=== PATIENT | female | born 1980 | race African-American/Black ===

== ENCOUNTER 2018-02-24 17:36 | Observation (INO) | payer OTHER ==
[~2018-02-24] VITALS: Ht 165.1 cm; Wt 99.8 kg
[2018-02-24 20:06] LABS: ABSOLUTE BASOPHIL COUNT 0.1 /CUMM (0.0-0.2); ABSOLUTE EOSINOPHIL COUNT 0.2 /CUMM (0.0-0.7); ABSOLUTE MONOCYTE COUNT 0.6 /CUMM (0.10-0.60); BASOPHIL % 0.8 % (0.0-2.0); EOSINOPHIL % 2.4 % (0-5); GRANULOCYTE % 44.5 % (42.2-75.2); HEMATOCRIT 34.6 % (37-47); MEAN CORPUSCULAR HGB 29.6 PG (27.0-31.0); MEAN CORPUSCULAR HGB CONC 33.2 G/DL (33.0-37.0); MEAN CORPUSCULAR VOLUME 89.2 FL (81.0-99.0); MEAN PLATELET VOLUME 8.4 FL (7.4-10.4); PLATELET COUNT 310 /CUMM (130-400); RBC DISTRIBUTION WIDTH 14.1 % (11.5-14.5); RED BLOOD CELL CT 3.88 /CUMM (4.20-5.40); WHITE BLOOD CELL COUNT 6.7 /CUMM (4.8-10.8)
--- NOTE | 2018-02-24 20:30 | ED PSYCHIATRIC COMPLAINT ---
History of Present Illness General Chief Complaint: ETOH/Drug Related Complaint Stated Complaint: ETOH Source: patient, old records Exam Limitations: intoxication Vital Signs & Intake/Output Vital Signs & Intake/Output Vital Signs Date Time Temp Pulse Resp B/P B/P Pulse O2 O2 Flow FiO2 Mean Ox Delivery Rate 02/25 1537 98.1 86 18 134/83 98 02/25 1536 98.1 86 18 134/83 02/25 1445 97 Room Air 02/25 1349 98.4 92 18 136/85 02/25 1322 98.4 92 18 136/85 97 Room Air 02/25 1104 97.6 76 18 140/87 02/25 1004 97.6 78 18 140/87 96 Room Air 02/25 0838 98.4 85 18 160/84 02/25 0809 98.4 85 18 160/84 98 Nasal 2.0L Cannula 02/25 0635 98.6 97 19 139/89 100 Nasal 2.5L Cannula 02/25 0459 98.4 103 19 124/82 99 Nasal 2.5L Cannula 02/25 0138 98.8 102 17 137/77 99 Nasal 2.5L Cannula 02/24 2347 98.5 120 21 128/89 99 Nasal 2.5L Cannula 02/24 2210 112 20 124/78 95 Nasal 2.5L Cannula 02/24 2115 114 20 120/61 95 Room Air 02/24 2102 116 20 146/63 92 Room Air 02/24 2055 98.5 115 14 149/87 86 Room Air 02/24 1819 Room Air 02/24 1809 98.7 125 28 107/68 97 Room Air ED Intake and Output 02/25 0000 02/24 1200 Intake Total Output Total Balance Patient 220 lb Weight Weight Reported by Patient Measurement Method Allergies Coded Allergies: No Known Allergies (02/24/18) Triage Note: PT BIBA C/O ETOH. PT IS AT [facility] [place] AND THEY CALLED REQUESTING DETOX FOR PT. PT STATES THAT SHE DRANK 2 PINTS OF VODKA TODAY. Triage Nurses Notes Reviewed? yes Onset: Just prior to arrival Duration: minute(s):, constant, continues in ED Timing: single episode today Severity: severe Associated Symptoms: impaired concentration LMP (ages 10-50): unknown : No Patient currently breastfeeds: No HPI: Patient is [facility]. Upon arrival she is agitated requiring physical and chemical restraints for sedation provided prior to my arrival. (Jl Brannon MD) Reconcile Medications Gabapentin 300 MG CAPSULE 1 CAP PO TID MENTAL HEALTH (Reported) [place] Carbonate 300 MG CAPSULE 1 CAP PO DAILY MENTAL HEALTH (Reported) [place] Carbonate 600 MG CAPSULE 1 CAP PO QPM MENTAL HEALTH (Reported) Quetiapine Fumarate 200 MG TABLET 1 TAB PO DAILY MENTAL HEALTH (Reported) Quetiapine Fumarate 300 MG TABLET 1 TAB PO QPM MENTAL HEALTH (Reported) [facility] Past History Travel History Traveled to [facility] past 21 day No Medical History Any Pertinent Medical History? see below for history Psychiatric: depression Isolation History: Standard Surgical History Surgical History: non-contributory Psychosocial History What is your primary language French Tobacco Use: Never used Family History Hx Contributory? No (Jl Brannon MD) Review of Systems Review of Systems Constitutional: Reports: no symptoms. EENTM: Reports: no symptoms. Respiratory: Reports: no symptoms. Cardiovascular: Reports: no symptoms. GI: Reports: no symptoms. Genitourinary: Reports: no symptoms. Musculoskeletal: Reports: no symptoms. Skin: Reports: no symptoms. Neurological/Psychological: Reports: see HPI, anxiety, confusion, emotional problems. Hematologic/Endocrine: Reports: no symptoms. Immunologic/Allergic: Reports: no symptoms. All Other Systems: Reviewed and Negative (Jl Brannon MD) Physical Exam Physical Exam General Appearance: well developed/nourished, mild distress Head: atraumatic, normal appearance Eyes: Bilateral: normal appearance, PERRL, EOMI. Ears, Nose, Throat: normal pharynx, normal ENT inspection, hearing grossly normal Neck: normal inspection, supple, full range of motion, no midline tenderness Respiratory: normal breath sounds, chest non-tender, no respiratory distress, quiet respiration, lungs clear Cardiovascular: regular rate/rhythm, normal peripheral pulses, norml femoral pulses equa Gastrointestinal: normal bowel sounds, soft, non-tender, no organomegaly Extremities: normal range of motion, no ligament instability Neurological/Psychiatric: no motor/sensory deficits, awake, agitated, alert, depressed affect, oriented x 3 Appearance/Memory/Insight: disheveled, impaired insight Behavoir/Eye Contact/Speech: uncooperative, increased rate of speech, threatening eye contact Thoughts/Hallucinations: no apparent hallucination Skin: intact, normal color, warm/dry SAD PERSONS Done? patient not suicidal (Salud RASCON,Jl) Progress Differential Diagnosis: drug intoxication, drug overdose, drug withdrawal, electrolyte abnormality, hypoglycemia Plan of Care: Orders Procedure Date/time Status Nursing Misc 02/26 0900 Active Regular Diet 02/25 D Active Regular Diet 02/25 B Complete Admit to inpatient psych 02/25 1551 Active ED Holding Orders 02/25 1551 Active Discharge Patient 02/25 1551 Active Code Status 02/25 1551 Active Patient Data - inpatient psych 02/25 1527 Active Admit to inpatient psych 02/25 1527 Active ED CRISIS PSYCH CONSULT 02/25 0816 Active Continuous Observation Monitor 02/25 0700 Active CIWA 02/25 0700 Active Continuous Observation Monitor 02/25 0300 Active CASE MANAGEMENT CONSULT 02/25 0152 Active OXYGEN SETUP (GEN) 02/25 0145 Active Saline Lock 02/[address] in observation 02/25 0145 Active Patient Data 02/25 0145 Active Vital Signs 02/25 0145 Active Activity/Ambulation 02/25 0145 Active Code Status 02/25 0145 Complete Alternative Nursing Therapy 02/25 UNK Active Continuous Observation Monitor 02/24 2300 Active Straight Cath 02/24 2109 Active EKG 02/24 2101 Active Restraint- Discontinue 02/24 2050 Active Restraint- Behavioral (Order) 02/24 1934 Complete URINE DRUG SCREEN FOR ER ONLY 02/24 193 Complete HUMAN BETA HCG SCREEN 02/24 193 Complete ETHANOL 02/24 193 Complete COMPREHENSIVE METABOLIC PANEL 02/24 193 Complete CBC WITHOUT DIFFERENTIAL 02/24 193 Complete Intake & Output 02/24 1922 Active Restraint- Behavioral (Order) 02/24 1905 Active Continuous Observation Monitor 02/24 1900 Active Current Medications Sig/Chip Start time Last Medication Dose Stop Time Status Admin Bisacodyl 5 MG DAILY PRN 02/25 1545 AC (Dulcolax) Acetaminophen 650 MG Q4P PRN 02/25 1530 AC (Tylenol) Al Hydroxide/Mg 30 ML Q4-6 PRN PRN 02/25 1530 AC Hydroxide (Maalox Plus) Haloperidol 5 MG Q4 HRS NEEDED PRN 02/25 1530 AC (Haldol) Haloperidol 5 MG Q4 HRS NEEDED PRN 02/25 1530 AC (Haldol) Lorazepam 2 MG Q4P PRN 02/25 1530 AC (Ativan) Laboratory Tests 02/24/18 2125: Urine Opiates Screen < 100, Methadone Screen 54, Barbiturate Screen < 60, Ur Phencyclidine Scrn < 6.00, Amphetamines Screen 149, U Benzodiazepines Scrn < 85, Urine Cocaine Screen < 50, Urine Cannabis Screen < 5.00 02/24/18 1950: Anion Gap 13, Estimated GFR > 60, BUN/Creatinine Ratio 21.3, Glucose 100 H, Calcium 9.6, Total Bilirubin 0.4, AST 91 H, ALT 32, Alkaline Phosphatase 83, Total Protein 7.7, Albumin 4.1, Globulin 3.6, Albumin/Globulin Ratio 1.1, Total Beta HCG NEGATIVE, CBC w Diff NO MAN DIFF REQ, RBC 3.88 L, MCV 89.2, MCH 29.6, MCHC 33.2, RDW 14.1, MPV 8.4, Gran % 44.5, Lymphocytes % 44.0, Monocytes % 8.3, Eosinophils % 2.4, Basophils % 0.8, Absolute Granulocytes 3.0, Absolute Lymphocytes 3.0, Absolute Monocytes 0.6, Absolute Eosinophils 0.2, Absolute Basophils 0.1, Serum Alcohol 233.0 Hand-Off Endorsed To: Telma Horton MD Endorsed Time: 0700 Pending: consult (case mgmt) Comments: After chemical sedation patient became hypoxic and moved for monitoring and supplemental oxygen. DCF has decided to take her children due to her alcohol abuse. (Jl Brannon MD) Comments: 02/26 1552 the patient is awake alert and oriented. Evaluated by crisis. The patient will be admitted to Inpatient Psychiatry. No distress. (Telma Horton MD) Departure Departure Disposition: STILL A PATIENT Condition: Stable Clinical Impression Primary Impression: Alcohol dependence with intoxication and delirium Referrals: Unknown (PCP/Family) Departure Forms: Customer Survey General Discharge Information (Jl Brannon MD)
--- NOTE | 2018-02-24 23:16 | RADIOLOGY REPORT ---
EXAMINATION: XR PORTABLE CHEST CLINICAL INFORMATION: Apnea. Hypoxia. Pneumonia. COMPARISON: None TECHNIQUE: Portable frontal view of the chest was obtained. 10:54 PM FINDINGS: No significant abnormality is noted involving the heart, lungs, mediastinum, bony thorax or soft tissues. IMPRESSION: Unremarkable examination.
[2018-02-25 08:38] VITALS: BP 160/84
[2018-02-25] MEDS ORDERED: LITHIUM CARBON300 M4 PO (09:27)
[2018-02-25] MEDS ORDERED: QUETIAPINE FUM200 M1 PO (09:27)
[2018-02-25] MEDS ORDERED: LITHIUM CARBON600 M1 PO (09:27)
[2018-02-25] MEDS ORDERED: QUETIAPINE FUM300 M1 PO (09:27)
[2018-02-25] MEDS ORDERED: GABAPENTIN300 M2 PO (09:28)
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
[2018-02-25 11:04] VITALS: BP 140/87
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
[2018-02-25 13:49] VITALS: BP 136/85
[2018-02-25 15:36] VITALS: BP 134/83
[2018-02-25 17:25] VITALS: BP 168/88
[2018-02-25] MEDS ORDERED: TRAZODONE HCL100 M1 PO (18:28)
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
== END 2018-02-25 15:56 ==
LOC: ERH 17:36 → ERHI 02-25 01:45 → ENTRNSPT 02-25 17:17 → EDTRNSPT 02-25 17:26 → EDTRNSPTSTS 02-25 17:26 → CMPTRNSPT 02-25 17:43
PROVIDERS: Emergency Medicine
DX: F10.221 Alcohol dependence with intoxication delirium (principal); F41.9 Anxiety disorder, unspecified; R41.0 Disorientation, unspecified; F32.9 Major depressive disorder, single episode, unspecified; Z79.899 Other long term (current) drug therapy
CPT/HCPCS: 6090; 71045; 80307; 93005; 93010; 96372; 99291; G0378; G0480; J1200; J1630; J3101; J3490